=== PATIENT | female | born 1965 | race Caucasian/White ===

== ENCOUNTER 2022-06-10 10:18 | Day surgery (SDC) | payer OTHER ==
[~2022-06-10] VITALS: Ht 160 cm; Wt 90.7 kg
[2022-06-10] MEDS ORDERED: LIDOCAINE 2% 100 MG/5 ML UJET TP ONE (13:33)
[2022-06-10] MEDS ORDERED: MIDAZOLAM 2 MG/2 ML VIAL ONE (13:33)
[2022-06-10] MEDS ORDERED: fentaNYL citrate 0.05 MG/ML VIAL ONE (13:33)
[2022-06-10] MEDS ORDERED: MIDAZOLAM 2 MG/2 ML VIAL IVP ONE (14:40)
[2022-06-10] MEDS ORDERED: fentaNYL citrate 0.05 MG/ML VIAL IVP ONE (14:40)
== END 2022-06-10 15:00 | disposition home or self-care (01) ==
LOC: MDS 10:18 → MMU 10:18 → MDS 15:00
PROVIDERS: ATTEND Internal Medicine Gastroenterology
DX: Z12.11 Encounter for screening for malignant neoplasm of colon (principal); I10 Essential (primary) hypertension; E78.5 Hyperlipidemia, unspecified; E03.9 Hypothyroidism, unspecified; Z80.0 Family history of malignant neoplasm of digestive organs; Z90.49 Acquired absence of other specified parts of digestive tract; Z98.890 Other specified postprocedural states
CPT/HCPCS: 45378; J2250; J3010